=== PATIENT | male | born 1945 | race Caucasian/White ===

== ENCOUNTER 2017-01-16 22:23 | Inpatient (IN) | payer OTHER ==
[~2017-01-16] VITALS: Ht 165.1 cm; Wt 40.8 kg
[2017-01-16 22:25] VITALS: BP_SYST 123
[2017-01-16 23:01] LABS: BASOPHILS % (AUTO) 0.3 % (0.0-2.0); EOSINOPHILS # (AUTO) 0.2 K/uL (0.0-0.4); EOSINOPHILS % (AUTO) 1.5 % (0.0-4.0); HEMATOCRIT 29.7 % (36-54); HEMOGLOBIN 9.4 g/dL (14.0-18.0); LYMPHOCYTES # (AUTO) 1.2 K/uL (1.0-5.5); LYMPHOCYTES % (AUTO) 9.4 % (20.5-51.5); MEAN CORPUSCULAR HEMOGLOBIN 29 pg (27-31); MEAN CORPUSCULAR HGB CONC 32 % (32-36); MEAN CORPUSCULAR VOLUME 92 fL (79.0-98.0); MONOCYTES # (AUTO) 1.1 K/uL (0.0-1.0); MONOCYTES % (AUTO) 8.3 % (1.7-9.3); NEUTROPHILS # (AUTO) 10.5 K/uL (1.8-7.7); NEUTROPHILS % (AUTO) 80.5 % (40.0-70.0); PLATELET COUNT (AUTO) 239 K/uL (130-430); RED BLOOD CELL COUNT(AUTO) 3.23 MIL/uL (4.2-6.2); RED CELL DISTRIBUTION WIDTH 15.3 % (9.0-15.0)
[2017-01-16 23:12] LABS: ANION GAP < 3 (5-15); CALCIUM 8.6 mg/dL (8.4-11.0); CHLORIDE 95 mmol/L (98-107); CREATININE 0.24 mg/dL (0.55-1.30); GLUCOSE 131 mg/dL (70-99); POTASSIUM 3.6 mmol/L (3.5-5.1); SODIUM SERUM 134 mmol/L (136-145); UREA NITROGEN, BLOOD 15 mg/dL (8-21)
[2017-01-16 23:16] LABS: ALANINE AMINOTRANSFERASE 50 U/L (12-78); ALBUMIN 2.1 g/dL (3.4-4.8); ASPARTATE AMINOTRANSFERASE 28 U/L (10-37); TOTAL BILIRUBIN 0.4 mg/dL (0.0-1.0)
[2017-01-16 23:48] LABS: BILIRUBIN,URINE NEGATIVE (NEGATIVE); BLOOD, URINE TRACE (NEGATIVE); CLARITY/URINE SL CLOUDY (CLEAR); COLOR,URINE YELLOW (YELLOW); GLUCOSE,URINE NEGATIVE (NEGATIVE); KETONES,URINE NEGATIVE (NEGATIVE); LEUKOCYTE ESTERASE ,URINE TRACE (NEGATIVE); NITRITE, URINE NEGATIVE (NEGATIVE); PROTEIN URINE TRACE (NEGATIVE)
[2017-01-16 23:53] LABS: BACTERIA,URINE MODERATE /HPF (None Seen); RBC,URINE 0-3 /HPF (0-3); URINE AMORPHOUS PHOSPHATES 2+ /HPF (None Seen)
[2017-01-17] VITALS (7 sets, daily range): BP systolic 95–114
[2017-01-17] MEDS ORDERED: HEPARIN SODIUM,PORCINE 5000 UNITS/ML VIAL IVP ONE (01:00)
[2017-01-17] MEDS ORDERED: LACTULOSE 20 GM/30 ML UDC GT ONE ×2 (01:15→14:45)
[2017-01-17] MEDS ORDERED: PIPERACILLIN/TAZO 3.375 GM in NS 50 ML IV ONE (01:15)
[2017-01-17] MEDS ORDERED: VANCOMYCIN HCL 1,000 MG in NS 250 ML IV ONE (01:15)
[2017-01-17] MEDS ORDERED: NACL 0.9% 1,000 ML IV ONE (01:15)
[2017-01-17] MEDS ORDERED: PIPERACILLIN/TAZOBACTAM 3.375 GM/VIAL (ZOSYN) IV ONE ×2 (01:22→05:01)
[2017-01-17] MEDS ORDERED: VANCOMYCIN HCL 1000 MG/VIAL IV ONE (01:22)
[2017-01-17] MEDS ORDERED: ALPR0.2583 GT (02:02)
[2017-01-17] MEDS ORDERED: FURO-150 GT (02:02)
[2017-01-17] MEDS ORDERED: LACT10SO66 GT (02:02)
[2017-01-17] MEDS ORDERED: LEVO75TA7 GT (02:02)
[2017-01-17] MEDS ORDERED: FLOR.1 GT (02:02)
[2017-01-17] MEDS ORDERED: LOVI40 SQ (02:10)
[2017-01-17] MEDS ORDERED: CRAN1POW3 PO (02:10)
[2017-01-17] MEDS ORDERED: TYLL650 PO (02:10)
[2017-01-17] MEDS ORDERED: ACETAMINOPHEN 650 MG/20.3 ML UDC GT ONE (02:15)
[2017-01-17] MEDS ORDERED: INSULIN REGULAR, HUMAN 100 UNITS/ML, 10 ML VIAL (novoLIN R) SUBCUT PRN (02:15)
[2017-01-17] MEDS: LR 1,000 ML IV SCH ×2 (03:37→22:15)
[2017-01-17] MEDS: PIPERACILLIN/TAZO 3.375 GM in NS 50 ML IV SCH ×4 (06:09→23:20)
[2017-01-17] MEDS ORDERED: MAGNESIUM CITRATE 300 ML ORAL SOLUTION GT ONE (08:00)
[2017-01-17] MEDS ORDERED: ALPRAZolam 0.25 MG TABLET GT PRN (13:15)
[2017-01-17] MEDS ORDERED: ACETAMINOPHEN 650 MG/20.3 ML UDC GT PRN (13:15)
[2017-01-17] MEDS ORDERED: IPRATROPIUM/ALBUTEROL SULFATE 3 ML AMPUL.NEB INH PRN (13:45)
[2017-01-17] MEDS ORDERED: ENOXAPARIN SODIUM 40 MG/0.4 ML SYRINGE SQ ONE (14:45)
[2017-01-17] MEDS ORDERED: FUROSEMIDE 20 MG TABLET GT ONE (14:45)
[2017-01-17] MEDS ORDERED: FLUDROCORTISONE ACETATE 0.1 MG TABLET( FLORINEF) GT ONE (14:45)
[2017-01-17] MEDS ORDERED: LEVOTHYROXINE SODIUM 0.075 MG TABLET GT ONE (14:45)
[2017-01-17] MEDS: IPRATROPIUM/ALBUTEROL SULFATE 3 ML AMPUL.NEB INH SCH ×3 (15:20→23:27)
[2017-01-17] MEDS ORDERED: BISACODYL 5 MG TABLET.DR (DULCOLAX) PO ONE (17:00)
[2017-01-17] MEDS ORDERED: GOLYTELY / COLYTE SOLUTION 4 LITERS PO ONE (18:00)
[2017-01-17] MEDS: ANTIFUNGAL CLEAR OINTMENT TP SCH (20:46)
[2017-01-17] MEDS: D5/0.45 NS 1,000 ML IV SCH (23:26)
[2017-01-18] MEDS: IPRATROPIUM/ALBUTEROL SULFATE 3 ML AMPUL.NEB INH SCH ×6 (03:39→23:26)
[2017-01-18 04:54] VITALS: BP_SYST 120
[2017-01-18] MEDS: PIPERACILLIN/TAZO 3.375 GM in NS 50 ML IV SCH ×2 (05:14→11:47)
[2017-01-18] MEDS: LEVOTHYROXINE SODIUM 0.075 MG TABLET GT SCH (05:19)
[2017-01-18 07:09] LABS: ANION GAP 3 (5-15); CALCIUM 8.4 mg/dL (8.4-11.0); CHLORIDE 103 mmol/L (98-107); CREATININE 0.25 mg/dL (0.55-1.30); GLUCOSE 106 mg/dL (70-99); SODIUM SERUM 144 mmol/L (136-145); UREA NITROGEN, BLOOD 10 mg/dL (8-21)
[2017-01-18 07:13] LABS: INR 1.1 (0.80-1.20); PROTHROMBIN TIME 11.7 SECS (9.5-12.5)
[2017-01-18 07:14] LABS: BASOPHILS % (AUTO) 0.5 % (0.0-2.0); EOSINOPHILS # (AUTO) 0.2 K/uL (0.0-0.4); EOSINOPHILS % (AUTO) 1.9 % (0.0-4.0); HEMATOCRIT 26.3 % (36-54); HEMOGLOBIN 8.5 g/dL (14.0-18.0); LYMPHOCYTES # (AUTO) 1.2 K/uL (1.0-5.5); MEAN CORPUSCULAR HEMOGLOBIN 29 pg (27-31); MEAN CORPUSCULAR HGB CONC 33 % (32-36); MONOCYTES # (AUTO) 0.8 K/uL (0.0-1.0); MONOCYTES % (AUTO) 9.6 % (1.7-9.3); NEUTROPHILS # (AUTO) 6.5 K/uL (1.8-7.7); PLATELET COUNT (AUTO) 247 K/uL (130-430); RED BLOOD CELL COUNT(AUTO) 2.92 MIL/uL (4.2-6.2); RED CELL DISTRIBUTION WIDTH 15.6 % (9.0-15.0)
[2017-01-18 07:25] LABS: WHITE BLOOD COUNT (AUTO) 8.7 K/uL (4.8-10.8)
[2017-01-18 07:26] LABS: ALANINE AMINOTRANSFERASE 40 U/L (12-78); ALBUMIN 1.9 g/dL (3.4-4.8); ASPARTATE AMINOTRANSFERASE 23 U/L (10-37); FREE T4 (FREE THYROXINE) 1.6 ng/dl (0.8-1.5); MEAN CORPUSCULAR VOLUME 90 fL (79.0-98.0); THYROID STIMULATING HORMONE 1.58 uIu/mL (0.36-3.74); TOTAL BILIRUBIN 0.6 mg/dL (0.0-1.0)
[2017-01-18 07:46] LABS: TOTAL IRON BIND. CAPACITY 125 ug/dL (250-450)
[2017-01-18] MEDS ORDERED: VANCOMYCIN HCL 750 MG in NS 250 ML IV SCH (08:00)
[2017-01-18 08:06] LABS: POTASSIUM 2.7 mmol/L (3.5-5.1)
[2017-01-18] MEDS ORDERED: DIATR MEGLU/DIATRIZ SOD 30 ML SOLUTION PO ONE (08:40)
[2017-01-18] MEDS: LACTULOSE 20 GM/30 ML UDC GT SCH (09:00)
[2017-01-18] MEDS: ANTIFUNGAL CLEAR OINTMENT TP SCH ×2 (09:00→21:00)
[2017-01-18] MEDS: ENOXAPARIN SODIUM 40 MG/0.4 ML SYRINGE SQ SCH (09:00)
[2017-01-18] MEDS: FLUDROCORTISONE ACETATE 0.1 MG TABLET( FLORINEF) GT SCH (09:00)
[2017-01-18 09:22] VITALS: BP_SYST 100
[2017-01-18] MEDS ORDERED: MIDAZOLAM HCL 5 MG/5 ML VIAL ONE (09:44)
[2017-01-18] MEDS ORDERED: SIMETHICONE 40 MG/0.6 ML ML ONE (10:47)
[2017-01-18] MEDS: POTASSIUM CHLORIDE 40 MEQ, LIDOCAINE JECT 2% PF 100 MG 50 MG in NS 250 ML IV SCH ×2 (11:10→12:03)
[2017-01-18 12:00] VITALS: BP_SYST 111
[2017-01-18] MEDS ORDERED: fentaNYL CITRATE/PF 100 MCG/2 ML AMP ONE (12:08)
[2017-01-18] MEDS: metroNIDAZOLE 500 mg/NS 100 ML IV SCH ×2 (15:09→22:17)
[2017-01-18 16:42] VITALS: BP_SYST 109
[2017-01-18] MEDS ORDERED: IOHEXOL 100 ML IV ONE (17:14)
[2017-01-18] MEDS ORDERED: POTASSIUM CHLORIDE 20 MEQ/PKT PACKET PO ONE (17:30)
[2017-01-18] MEDS: SOD FERRIC GLUC COMPLEX/SUC 125 MG in NS 100 ML IV SCH (19:00)
[2017-01-18] MEDS: D5/0.45 NS 1,000 ML IV SCH (20:00)
[2017-01-18] MEDS: CEFEPIME 1 GM in D5W 50 ML IV SCH (21:29)
[2017-01-18] MEDS: POTASSIUM CHLORIDE 20 MEQ/PKT PACKET PO SCH (21:30)
[2017-01-18 23:38] VITALS: BP_SYST 120
[2017-01-18 23:42] VITALS: BP_SYST 120
[2017-01-19] MEDS: IPRATROPIUM/ALBUTEROL SULFATE 3 ML AMPUL.NEB INH SCH ×5 (03:09→21:20)
[2017-01-19 04:04] VITALS: BP_SYST 100
[2017-01-19] MEDS: metroNIDAZOLE 500 mg/NS 100 ML IV SCH ×3 (06:08→22:05)
[2017-01-19] MEDS: LEVOTHYROXINE SODIUM 0.075 MG TABLET GT SCH (06:09)
[2017-01-19 07:39] LABS: BASOPHILS # (AUTO) 0.1 K/uL (0.0-0.2); BASOPHILS % (AUTO) 0.7 % (0.0-2.0); EOSINOPHILS # (AUTO) 0.2 K/uL (0.0-0.4); EOSINOPHILS % (AUTO) 2.3 % (0.0-4.0); HEMATOCRIT 30.2 % (36-54); HEMOGLOBIN 9.8 g/dL (14.0-18.0); LYMPHOCYTES # (AUTO) 1.4 K/uL (1.0-5.5); LYMPHOCYTES % (AUTO) 18.7 % (20.5-51.5); MEAN CORPUSCULAR HEMOGLOBIN 30 pg (27-31); MEAN CORPUSCULAR HGB CONC 32 % (32-36); MEAN CORPUSCULAR VOLUME 91 fL (79.0-98.0); MONOCYTES # (AUTO) 0.9 K/uL (0.0-1.0); MONOCYTES % (AUTO) 11.3 % (1.7-9.3); PLATELET COUNT (AUTO) 280 K/uL (130-430); RED BLOOD CELL COUNT(AUTO) 3.31 MIL/uL (4.2-6.2); RED CELL DISTRIBUTION WIDTH 15.2 % (9.0-15.0); WHITE BLOOD COUNT (AUTO) 7.6 K/uL (4.8-10.8)
[2017-01-19 08:07] VITALS: BP_SYST 123
[2017-01-19 08:28] LABS: FOLATE (FOLIC ACID) >20.0 ng/mL (>3.0)
[2017-01-19 08:28] LABS: ANION GAP 6 (5-15); CHLORIDE 101 mmol/L (98-107); CREATININE 0.32 mg/dL (0.55-1.30); GLUCOSE 112 mg/dL (70-99); SODIUM SERUM 137 mmol/L (136-145); UREA NITROGEN, BLOOD 8 mg/dL (8-21)
[2017-01-19] MEDS ORDERED: FUROSEMIDE 20 MG TABLET GT SCH (09:00)
[2017-01-19] MEDS: CEFEPIME 1 GM in D5W 50 ML IV SCH ×2 (09:12→20:55)
[2017-01-19] MEDS: POTASSIUM CHLORIDE 20 MEQ/PKT PACKET PO SCH ×2 (09:16→20:55)
[2017-01-19] MEDS: ENOXAPARIN SODIUM 40 MG/0.4 ML SYRINGE SQ SCH (09:16)
[2017-01-19] MEDS: LACTULOSE 20 GM/30 ML UDC GT SCH (09:16)
[2017-01-19] MEDS: FLUDROCORTISONE ACETATE 0.1 MG TABLET( FLORINEF) GT SCH (09:16)
[2017-01-19] MEDS: ANTIFUNGAL CLEAR OINTMENT TP SCH ×2 (09:17→22:05)
[2017-01-19 10:54] LABS: RETICULOCYTE COUNT 1.6 % (0.5-1.5)
[2017-01-19 12:05] VITALS: BP_SYST 117
[2017-01-19] MEDS: D5/0.45 NS 1,000 ML IV SCH (14:51)
[2017-01-19 16:29] VITALS: BP_SYST 113
[2017-01-19] MEDS: SOD FERRIC GLUC COMPLEX/SUC 125 MG in NS 100 ML IV SCH (18:04)
[2017-01-19 23:30] VITALS: BP_SYST 111
[2017-01-20] MEDS: IPRATROPIUM/ALBUTEROL SULFATE 3 ML AMPUL.NEB INH SCH ×5 (00:16→15:23)
[2017-01-20 03:55] VITALS: BP_SYST 94
[2017-01-20] MEDS: metroNIDAZOLE 500 mg/NS 100 ML IV SCH ×2 (06:07→14:55)
[2017-01-20] MEDS: LEVOTHYROXINE SODIUM 0.075 MG TABLET GT SCH (06:07)
[2017-01-20 06:14] VITALS: BP_SYST 105
[2017-01-20 06:39] LABS: BASOPHILS % (AUTO) 0.4 % (0.0-2.0); EOSINOPHILS # (AUTO) 0.2 K/uL (0.0-0.4); EOSINOPHILS % (AUTO) 2.1 % (0.0-4.0); HEMATOCRIT 31.3 % (36-54); HEMOGLOBIN 10.1 g/dL (14.0-18.0); LYMPHOCYTES # (AUTO) 2.8 K/uL (1.0-5.5); LYMPHOCYTES % (AUTO) 35.5 % (20.5-51.5); MEAN CORPUSCULAR HEMOGLOBIN 29 pg (27-31); MEAN CORPUSCULAR HGB CONC 32 % (32-36); MEAN CORPUSCULAR VOLUME 91 fL (79.0-98.0); MONOCYTES # (AUTO) 0.8 K/uL (0.0-1.0); MONOCYTES % (AUTO) 10.5 % (1.7-9.3); NEUTROPHILS % (AUTO) 51.5 % (40.0-70.0); PLATELET COUNT (AUTO) 282 K/uL (130-430); RED BLOOD CELL COUNT(AUTO) 3.45 MIL/uL (4.2-6.2); RED CELL DISTRIBUTION WIDTH 15.5 % (9.0-15.0); WHITE BLOOD COUNT (AUTO) 7.8 K/uL (4.8-10.8)
[2017-01-20 06:54] LABS: ANION GAP 4 (5-15); CHLORIDE 104 mmol/L (98-107); CHOLESTEROL 103 mg/dL (<200); CREATININE 0.33 mg/dL (0.55-1.30); GLUCOSE 125 mg/dL (70-99); HDL CHOLESTEROL 42 mg/dL (>45); LDL CHOLESTEROL 70 mg/dL (<100); POTASSIUM 3.9 mmol/L (3.5-5.1); SODIUM SERUM 139 mmol/L (136-145); TRIGLYCERIDES 29 mg/dL (30-150); UREA NITROGEN, BLOOD 9 mg/dL (8-21)
[2017-01-20 08:36] VITALS: BP_SYST 118
[2017-01-20] MEDS: FLUDROCORTISONE ACETATE 0.1 MG TABLET( FLORINEF) GT SCH (09:45)
[2017-01-20] MEDS: POTASSIUM CHLORIDE 20 MEQ/PKT PACKET PO SCH (09:45)
[2017-01-20] MEDS: ENOXAPARIN SODIUM 40 MG/0.4 ML SYRINGE SQ SCH (09:46)
[2017-01-20] MEDS: CEFEPIME 1 GM in D5W 50 ML IV SCH (09:46)
[2017-01-20] MEDS: ANTIFUNGAL CLEAR OINTMENT TP SCH (09:47)
[2017-01-20 11:28] VITALS: BP_SYST 97
[2017-01-20] MEDS: D5/0.45 NS 1,000 ML IV SCH (12:00)
[2017-01-20 15:05] VITALS: BP_SYST 98
[2017-01-20 15:14] VITALS: BP_SYST 98
[2017-01-21] MEDS ORDERED: PANTOPRAZOLE SODIUM 40 MG TAB GT SCH (09:00)
== END 2017-01-20 16:15 | DRG 208 ==
LOC: SED 22:23 → STU 01-17 02:15
PROVIDERS: ADMIT Internal Medicine; ATTEND Internal Medicine
PROC: 5A1945Z Respiratory Ventilation, 24-96 Consecutive Hours (ICD-10-PCS; principal; 2017-01-17)
PROC: 0D20XUZ Change Feeding Device in Upper Intestinal Tract, External Approach (ICD-10-PCS; 2017-01-18)
PROC: 0DJD8ZZ Inspection of Lower Intestinal Tract, Via Natural or Artificial Opening Endoscopic (ICD-10-PCS; 2017-01-18)
PROC: 0DB68ZX Excision of Stomach, Via Natural or Artificial Opening Endoscopic, Diagnostic (ICD-10-PCS; 2017-01-18 10:30)
DX: J96.20 Acute and chronic respiratory failure, unspecified whether with hypoxia or hypercapnia (principal); J69.0 Pneumonitis due to inhalation of food and vomit; E43 Unspecified severe protein-calorie malnutrition; G82.50 Quadriplegia, unspecified; Z99.11 Dependence on respirator [ventilator] status; E87.2 Acidosis; G71.0 Muscular dystrophy; Z93.0 Tracheostomy status; J44.0 Chronic obstructive pulmonary disease with (acute) lower respiratory infection; N39.0 Urinary tract infection, site not specified; J98.11 Atelectasis; J44.1 Chronic obstructive pulmonary disease with (acute) exacerbation; F03.90 Unspecified dementia, unspecified severity, without behavioral disturbance, psychotic disturbance, mood disturbance, and anxiety; E11.9 Type 2 diabetes mellitus without complications; I10 Essential (primary) hypertension; K29.70 Gastritis, unspecified, without bleeding; K52.9 Noninfective gastroenteritis and colitis, unspecified; K56.41 Fecal impaction; K57.30 Diverticulosis of large intestine without perforation or abscess without bleeding; N20.0 Calculus of kidney; Z93.1 Gastrostomy status; Z79.899 Other long term (current) drug therapy
CPT/HCPCS: 36415; 36600; 43239; 45378; 71010; 74170-TC; 80048; 80053; 80061; 81000-TC; 82550-TC; 82607; 82746; 82803-TC; 82962; 83540-TC; 83550-TC; 83605; 83690-TC; 83735-TC; 84100-TC; 84439; 84443-TC; 85025; 85044-TC; 85610-TC; 86301; 87040-TC; 87081; 87086; 88305; 88312; 88313; 93005; 94003; 94640; 94760; 96365; 97110-GP; 97530-GP; 99285; J0692; J1650; J1815; J2250; J2543; J2916; J3010; J3370; J3480; J3490; J7030; J7050; J7060; J7120; Q9964; Q9967